=== PATIENT | male | born 1990 | race African-American/Black ===

== ENCOUNTER 2017-09-23 16:10 | Emergency (ER) | payer MEDICAID ==
[~2017-09-23] VITALS: Ht 180.3 cm; Wt 75.0 kg
[2017-09-23 23:18] VITALS: BP 105/57
[2017-09-24] MEDS ORDERED: ACETAMINOPHEN 500MG TABLET PO ONE (00:45)
[2017-09-24] MEDS ORDERED: CEPHALEXIN 500MG CAPSULE PO ONE (00:45)
[2017-09-24] MEDS ORDERED: CEFTRIAXONE SODIUM 250 MG/VIAL IM ONE (02:15)
[2017-09-24] MEDS ORDERED: AZITHROMYCIN 500 MG TABLET PO ONE (02:15)
[2017-09-24] MEDS ORDERED: LIDOCAINE HCL 1% 20ML VIAL (Pyxis) INJ INFIL ONE (02:15)
== END 2017-09-24 02:49 | disposition home or self-care (01) ==
LOC: ER 16:10
DX: S31.010A Laceration without foreign body of lower back and pelvis without penetration into retroperitoneum, initial encounter (principal); G82.20 Paraplegia, unspecified; Z99.3 Dependence on wheelchair; W19.XXXA Unspecified fall, initial encounter; Y93.89 Activity, other specified; Y99.8 Other external cause status; Y92.89 Other specified places as the place of occurrence of the external cause
CPT/HCPCS: 72170; 93970; 96372; 99284; J0696; J3490; Z7610

== ENCOUNTER 2018-01-14 10:54 | Emergency (ER) | payer MEDICAID ==
[~2018-01-14] VITALS: Ht 175.3 cm; Wt 75.0 kg
[2018-01-14] MEDS ORDERED: LORAZEPAM 0.5MG TABLET PO ONE (11:45)
[2018-01-14 12:05] LABS: CLARITY URINE CLEAR (CLEAR); COLOR URINE DARK YELLOW (YELLOW); KETONES URINE TRACE (NEGATIVE); LEUKOCYTE ESTERASE URINE NEGATIVE (NEGATIVE); NITRITE URINE NEGATIVE (NEGATIVE); OCCULT BLOOD URINE NEGATIVE (NEGATIVE); PH URINE 5.5 (4.5-8.0); PROTEIN URINE 1+ (NEGATIVE); SPECIFIC GRAVITY URINE 1.033 (1.005-1.030)
[2018-01-14 12:13] LABS: BASOPHILS % 0.4 % (0.0-2.0); EOSINOPHILS % 0.4 % (0.0-5.0); HEMATOCRIT. 37.6 % (42.0-52.0); HEMOGLOBIN. 12.7 g/dL (14.0-18.0); LYMPHOCYTES % 10.1 % (20.0-50.0); MEAN PLATELET VOLUME 8.6 fl (7.4-10.4); MONOCYTES % 8.2 % (2.0-8.0); NEUTROPHILS % 80.9 % (40.0-76.0); PLATELET 266 x1000/uL (130-400); RED BLOOD CELL COUNT 4.23 mill/uL (4.7-6.1)
[2018-01-14 12:15] LABS: CHLORIDE 103 mEq/L (98-107)
[2018-01-14 12:20] LABS: ETHANOL BLOOD < 10 mg/dL
[2018-01-14 12:35] LABS: *AMPHETAMINES SCREEN URINE PRESUMTIVE POSITIVE (NEGATIVE); *BARBITURATES SCREEN URINE NEGATIVE (NEGATIVE); *BENZODIAZEPINES SCREEN URINE NEGATIVE (NEGATIVE); *COCAINE SCREEN URINE PRESUMTIVE POSITIVE (NEGATIVE); METHADONE URINE SCREEN NEGATIVE (NEGATIVE); OPIATES URINE SCREEN NEGATIVE (NEGATIVE); PHENCYCLIDINE URINE SCREEN NEGATIVE (NEGATIVE)
[2018-01-14 12:36] LABS: CANNABINOID URINE SCREEN PRESUMTIVE POSITIVE (NEGATIVE)
[2018-01-14 18:21] VITALS: BP 110/57
== END 2018-01-14 19:18 | disposition home or self-care (01) ==
LOC: ER 12:02
DX: F12.10 Cannabis abuse, uncomplicated (principal); G82.20 Paraplegia, unspecified
CPT/HCPCS: 36415; 80053; 80305; 81003; 85025; 99284; G0482; Z7610

== ENCOUNTER 2018-02-18 23:46 | Emergency (ER) | payer MEDICAID ==
[~2018-02-18] VITALS: Ht 182.9 cm; Wt 82.0 kg
[2018-02-19] MEDS ORDERED: DIPHENHYDRAMINE 50MG CAPSULE PO ONE (02:45)
[2018-02-19 06:33] VITALS: BP 127/77
== END 2018-02-19 06:40 | disposition home or self-care (01) ==
LOC: ER 23:46
DX: R21 Rash and other nonspecific skin eruption (principal); L29.9 Pruritus, unspecified; M79.1 Myalgia; F17.200 Nicotine dependence, unspecified, uncomplicated; F15.10 Other stimulant abuse, uncomplicated
CPT/HCPCS: 99283; Z7610; Q0163

== ENCOUNTER 2019-07-19 17:06 | Emergency (ER) | payer MEDICAID ==
[~2019-07-19] VITALS: Ht 177.8 cm; Wt 90.0 kg
[2019-07-19] MEDS ORDERED: HALOPERIDOL LACTATE 5MG/ML VIAL IM ONE (18:30)
[2019-07-19 19:04] LABS: BASOPHILS % 0.8 % (0.0-2.0); EOSINOPHILS % 2.5 % (0.0-5.0); HEMATOCRIT. 42.7 % (42.0-52.0); HEMOGLOBIN. 14.3 g/dL (14.0-18.0); LYMPHOCYTES % 28.5 % (20.0-50.0); MEAN CORPUSCULAR HEMOGLOBIN 30.8 pg (28.0-32.0); MEAN CORPUSCULAR VOLUME 92.2 fL (80.0-94.0); MEAN PLATELET VOLUME 8.7 fl (7.4-10.4); MONOCYTES % 7.5 % (2.0-8.0); NEUTROPHILS % 60.7 % (40.0-76.0); PLATELET 260 x1000/uL (130-400); RED BLOOD CELL COUNT 4.63 mill/uL (4.7-6.1); RED CELL DISTRIBUTION WIDTH 15.2 % (11.6-14.6)
[2019-07-19 19:12] LABS: CHLORIDE 102 mEq/L (98-107)
[2019-07-19 19:16] LABS: ETHANOL BLOOD < 10 mg/dL
[2019-07-19 22:16] LABS: CLARITY URINE CLOUDY (CLEAR); COLOR URINE YELLOW (YELLOW); KETONES URINE TRACE (NEGATIVE); LEUKOCYTE ESTERASE URINE TRACE (NEGATIVE); NITRITE URINE POSITIVE (NEGATIVE); OCCULT BLOOD URINE NEGATIVE (NEGATIVE); PROTEIN URINE NEGATIVE (NEGATIVE); SPECIFIC GRAVITY URINE 1.027 (1.005-1.030)
[2019-07-19 22:22] LABS: *AMPHETAMINES SCREEN URINE PRESUMTIVE POSITIVE (NEGATIVE); *BARBITURATES SCREEN URINE NEGATIVE (NEGATIVE); *BENZODIAZEPINES SCREEN URINE NEGATIVE (NEGATIVE); *COCAINE SCREEN URINE NEGATIVE (NEGATIVE); METHADONE URINE SCREEN NEGATIVE (NEGATIVE); OPIATES URINE SCREEN NEGATIVE (NEGATIVE)
[2019-07-19 22:23] LABS: CANNABINOID URINE SCREEN PRESUMTIVE POSITIVE (NEGATIVE); PHENCYCLIDINE URINE SCREEN NEGATIVE (NEGATIVE)
[2019-07-19] MEDS ORDERED: CEFTRIAXONE 1 G PREMIX 50 ML IV ONE (22:30)
[2019-07-20 09:37] VITALS: BP 116/69
== END 2019-07-20 07:46 | disposition home or self-care (01) ==
LOC: ER 17:06
DX: F19.10 Other psychoactive substance abuse, uncomplicated (principal); F23 Brief psychotic disorder; N39.0 Urinary tract infection, site not specified
CPT/HCPCS: 36415; 80053; 80305; 80307; 80320; 80329; 81003; 82140; 82962; 84443; 85025; 96365; 96372; 99283; J0696; J1630; G0480

== ENCOUNTER 2024-12-25 12:28 | Emergency (ER) | payer MEDICAID ==
[~2024-12-25] VITALS: Ht 182.9 cm; Wt 77.0 kg
[2024-12-25 12:30] VITALS: O2SAT 100
[2024-12-25] MEDS: DOCUSATE SODIUM 100MG CAPSULE PO ONE (13:06)
[2024-12-25] MEDS: MORPHINE SULFATE 4 MG/ML INJ (FOR IV/IM USE) IV ONE (13:09)
[2024-12-25 13:17] LABS: BASOPHILS % 0.6 % (0.0-2.0); HEMOGLOBIN. 13.1 g/dL (14.0-18.0); LYMPHOCYTES % 40.8 % (20.0-50.0); MEAN CORPUSCULAR HEMOGLOBIN 29.5 pg (28.0-32.0); MEAN CORPUSCULAR VOLUME 92.1 fL (80.0-94.0); MEAN PLATELET VOLUME 9.1 fl (7.4-10.4); MONOCYTES % 10.2 % (2.0-8.0); NEUTROPHILS % 45.4 % (40.0-76.0); PLATELET 260 x1000/uL (130-400); RED BLOOD CELL COUNT 4.46 mill/uL (4.7-6.1); RED CELL DISTRIBUTION WIDTH 15.1 % (11.6-14.6); WHITE BLOOD COUNT 5.3 x1000/uL (4.5-11.0)
[2024-12-25] MEDS: NA PHOS,M-B/NA PHOS,DI-BA ENEMA 118ML PR ONE (13:23)
[2024-12-25 13:27] LABS: PROTHROMBIN TIME 10.5 sec (9.6-11.0)
[2024-12-25 13:28] LABS: CHLORIDE 108 mEq/L (98-107); SODIUM 137 mEq/L (136-145)
[2024-12-25 13:29] LABS: CALCIUM 8.4 mg/dL (8.7-10.4); CARBON DIOXIDE 25 mEq/L (21-32)
[2024-12-25 13:30] VITALS: TEMP 37
[2024-12-25 13:34] LABS: CREATININE 0.6 mg/dL (0.6-1.3); GLUCOSE 97 mg/dL (70-105); UREA NITROGEN BLOOD 9 mg/dL (9-23)
[2024-12-25 13:36] LABS: ALANINE AMINOTRANSFERASE 9 IU/L (10-49); ALBUMIN 3.3 g/dL (3.2-4.8); ASPARTATE AMINOTRANSFERASE 15 IU/L (<34); BILIRUBIN DIRECT < 0.1 mg/dL (<=3.0)
[2024-12-25 13:37] LABS: BILIRUBIN TOTAL 0.2 mg/dL (0.1-1.0); PROTEIN TOTAL 6.4 g/dL (6.0-8.3)
[2024-12-25] MEDS: SENNOSIDES/DOCUSATE SOD 8.6/50MG TABLET PO PRN (13:42)
[2024-12-25] MEDS: POLYETHYLENE GLYCOL 3350 (17GM) 1 DOSE PACK PO ONE (13:42)
[2024-12-25 16:21] VITALS: TEMP 98.60
[2024-12-25] MEDS ORDERED: SENN-371 MT (16:59)
[2024-12-25] MEDS ORDERED: NA P133E RC (16:59)
[2024-12-25] MEDS ORDERED: DOCU-138 MT (16:59)
[2024-12-25] MEDS ORDERED: POLY17PO3 MT (16:59)
[2024-12-25] MEDS ORDERED: IPRATROPIUM/ALBUTEROL 0.5-3(2.5)MG/3ML NEB HHN PRN (17:30)
[2024-12-25] MEDS ORDERED: ONDANSETRON HCL 4MG/2ML INJ IV PRN (17:30)
[2024-12-25] MEDS ORDERED: CLONIDINE 0.1MG TABLET PO PRN (17:30)
[2024-12-25] MEDS ORDERED: ACETAMINOPHEN 325MG TABLET PO PRN ×2 (17:30)
[2024-12-25] MEDS ORDERED: SENNOSIDES/DOCUSATE SOD 8.6/50MG TABLET PO PRN (17:30)
[2024-12-25] MEDS ORDERED: DOCUSATE SODIUM 100MG CAPSULE PO PRN (17:30)
[2024-12-25] MEDS ORDERED: GUAIFENESIN 200MG/10ML SUGAR FREE UDC PO PRN (17:30)
[2024-12-25] MEDS ORDERED: LORAZEPAM 0.5MG TABLET PO PRN (17:30)
[2024-12-25 18:21] VITALS: BP 113/80; PULSE 61; RESP 16; O2SAT 100
== END 2024-12-25 19:14 | disposition home or self-care (01) ==
LOC: ER 12:28 → EDBEDREQTM 16:12 → EDBEDREQ 16:12 → CANBEDREQ 17:23 → ER 19:14
DX: K56.41 Fecal impaction (principal); K56.699 Other intestinal obstruction unspecified as to partial versus complete obstruction; G82.20 Paraplegia, unspecified; Z99.3 Dependence on wheelchair; Z79.899 Other long term (current) drug therapy
CPT/HCPCS: 80076; 80048; 85025; 85610; 36415; 74176; 93970; 96374; 99285; Z7610 ×4; J2270; A4606